=== PATIENT | female | born 1985 ===

== ENCOUNTER 2016-05-14 15:51 | Emergency (ER) | payer MEDICAID, OTHER ==
[~2016-05-14 15:51] MED LIST: HYDR-4003 PO; LEVO112T4 PO; METR500T19 PO
[2016-05-14 15:54] VITALS: BP 131/95; PULSE 83; RESP 16; O2SAT 100
--- NOTE | 2016-05-14 18:04 | ED.REPORT ---
HPI-Sore Throat ONLY HPI/PE done May 14, 2016 ED Provider: Garfield Jeong DO A 30 year old female with a history of asthma, hyperthyroidism, and prior history of smoking is brought to the ED via EMS complaining of a sore throat and throat tightness. This is accompanied by cough, chest pain, pleuritic pain, fever, and right-sided abdominal pain. She first noticed the fever and sore throat yesterday and began coughing this morning. The abdominal pain began while the pt has been in the ED. Nursing Notes Stated Complaint: THROAT TIGHTNESS Chief Complaint: General Complaint Nursing Notes Reviewed: Yes Allergies: Coded Allergies: TAPE (Verified Allergy, Mild, 08/01/15) carbamide peroxide (Verified Allergy, Mild, Pt has an allergy to an eardrop name unknown, 08/01/15) glycerin (Verified Allergy, Mild, Pt has an allergy to an eardrop name unknown, 08/01/15) Sulfa (Sulfonamide Antibiotics) (Verified Allergy, Unknown, 08/01/15) ibuprofen (Verified Allergy, Unknown, 08/01/15) Uncoded Allergies: DEPO PROVERA (Allergy, Unknown, itching, rash, 03/22/14) METHEMAZOLE-THYROID MED (Allergy, Unknown, 04/28/14) PTU-THYROID MED (Allergy, Unknown, 04/28/14) Scheduled Levothyroxine (Levothyroxine) 112 Mcg Tablet 175 MCG PO DAILY Metronidazole (Metronidazole) 500 Mg Tablet 500 MG PO TID Scheduled PRN Hydrocodone-Acetaminophen 5-325 mg (Hydrocodone-Acetaminophen 5-325 mg) 1 Each Tablet 1 TABLET PO Q4H PRN PRN For Pain General Time Seen by MD: 18:04 Chief Complaint Sore throat Hx Obtained From: Patient, EMS Arrived By: Ambulance Onset Occurred: 1 day ago Symptom Duration: Since onset Recent Healthcare: No recent hospitalization, Recent doctor visit Similar Sx Previous: No Past Medical History Past Medical History Notes: Endocrineologist: Dr. Jenkins OB: Eun Past Medical History Kidney infections Hyperthyroid without medication chlamydia GERD Reports: Asthma Reports: Obesity Past Surgical History Myringotomy Loli Fundoplication Hiatal hernia surgery Complete thyroidectomy Reports: Cholecystectomy Family History Noncontributory Smoking History Former Smoker Social History Alcohol Use: Denies alcohol use Drug Use: Denies drug use Other Social History: Ambulatory Status Independent Review of Systems Review of Systems Note: throat tightness Constitutional: Reports: Fever Ears / Nose / Throat: Reports: Sore throat Respiratory: Reports: Non-productive cough, Pleuritic pain GI: Reports: Abdominal pain Skin: Denies Rash Complete sys rev & neg: except as marked. Cardiovascular: Reports: Chest pain Musculoskeletal: Denies: Back pain, Neck pain Physical Exam Initial Vital Signs Vital Signs (First) Date Time Temp Pulse Resp B/P Pulse Ox O2 Delivery O2 Flow Rate FiO2 05/14/16 15:54 37.3 83 16 131/95 100 Room Air Initial VS: Reviewed General/Constitutional: Awake, Alert ENT: Atraumatic, Airway patent, Mucous membranes moist tonsillar hypertrophy and erythema bilaterally Neck: Atraumatic, Supple, Full range of motion Head / Eyes: Atraumatic, Normocephalic, PERRL, EOMI Respiratory / Chest: Atraumatic, Breath sounds NL, Breath sounds = bilat, No respiratory distress Cardiovascular: Heart rate NL, Regular rhythm, Heart sounds NL Abdomen: Atraumatic, Soft, Non-tender Skin: Atraumatic, Color NL, No rash, Warm, Dry Neurologic: Oriented X3, Speech NL, No motor deficits, No sensory deficits Back: Atraumatic, Full range of motion Upper Extremity / MS: Atraumatic, Full range of motion Lower Extremity / Pelvis / MS: Atraumatic, Full range of motion Psychiatric: Affect NL, Mood NL Interpretation & Diagnostics Lab Results Interpretation Result Diagram: 05/14/16204405/14/162044 Test 05/14/16 20:45 05/14/16 23:20 White Blood Count 8.2th/mm3 (3.8-10.1) Red Blood Count 4.81mil/mm3 (3.90-5.20) Hemoglobin 11.5g/dL (12.0-15.6) Hematocrit 35.9% (35.0-46.0) Mean Corpuscular Volume 74.6fL (81-100) Mean Corpuscular Hemoglobin 23.9pg (27.0-35.0) Mean Corpuscular Hemoglobin Concent 32.0% (32.0-37.0) Red Cell Distribution Width 16.1% (12.3-15.4) Platelet Count 404bil/L (150-400) Neutrophils (%) (Auto) 64.9% (40-74) Lymphocytes (%) (Auto) 29.1% (14-46) Monocytes (%) (Auto) 3.9% (4-12) Eosinophils (%) (Auto) 1.5% (0-5) Basophils (%) (Auto) 0.4% (0-3) D-Dimer < 0.5mg/L (<0.50) Sodium Level 137mEq/L (134-144) Potassium Level 3.8mEq/L (3.5-5.2) Chloride Level 100mEq/L (97-108) Carbon Dioxide Level 21mmol/L (18-29) Blood Urea Nitrogen 4mg/dL (6-20) Creatinine 0.62mg/dL (0.57-1.00) Estimat Glomerular Filtration Rate 163mL/min (>59) Glucose Level 83mg/dL (60-99) Calcium Level 7.9mg/dL (8.5-10.1) Total Bilirubin 0.6mg/dL (0.0-1.2) Aspartate Amino Transf (AST/SGOT) 25U/L (0-50) Alanine Aminotransferase (ALT/SGPT) 14U/L (0-32) Alkaline Phosphatase 96U/L (25-150) Total Protein 7.5g/dL (6.4-8.4) Albumin 4.1g/dL (3.4-5.0) Hold [place] Top Tube Received (Received) Troponin T 0.010ug/L (0.0-0.011) Pulse Oximetry Interpretation Pulse Oximetry Interpretation: 100% on room air Pulse Oximetry: Pulse Ox normal Pulse Oximetry Interpretation: 100% on room air Pulse Oximetry: Pulse Ox normal ECG Interpretation ECG Interpretation: normal sinus rhythm with a rate of 88 nonspecific T abnormalities, diffuse leads history of nonspecific T waves, present in 07/2015 Time: 20:52 Interpreted by: ED physician Re-Eval/Medical Decision Source of Hx: Old records Re-Evaluation/Progress : Time of Eval: 01:25 Patient Status: Condition improved Re-Evaluation/Progress Note: Pt rechecked, who is comfortable. Diagnosis and the plan for discharge are discussed. The pt understands and agrees with the plan. All questions are addressed at this time. Counseled Regarding: Diagnosis, Lab results, Need for follow-up, When/why to return to ED Discharge & Departure Primary Impression: Pharyngitis Pharyngitis/tonsillitis etiology: unspecified etiology Qualified Code: J02.9 - Acute pharyngitis, unspecified Disposition: Home Discharge Condition All VS Reviewed: Yes Condition: Stable Patient Instructions: Pharyngitis (ED) Additional Instructions: Amoxicillin twice daily for 10 days. Percocet 1 every 6 hours as needed for pain. Warm salt water gargles. I would like you to have your throat rechecked in 2-3 days. Call your clinic tomorrow for follow-up. Do not drive tonight. Do not drive or drink alcohol or consume acetaminophen while taking the Percocet. Do not hesitate to return if any problems or any worsening symptoms. Your EKG was similar to prior EKGs. Your heart enzymes are normal. Your blood clot test was negative. I think that the tightness in your throat is due to the throat infection that is apparent on physical examination. Referrals: Luda Hernandez PA-C (PCP) Alejandroibally Attestation Portions of this note were transcribed by Regan Malloy. I, Dr. Jeong personally performed the history, physical exam and medical decision-making; I reviewed and confirmed the accuracy of the information in the transcribed note. Signed by: Marcos Lala, 05/15/2016 and 0144. copies to: Luda Hernandez PA-C, Todd P DO May 14, 2016 18:04 REGAN MALLOY May 14, 2016 19:15
[2016-05-14] MEDS ORDERED: HYDROcodone-APAP 5-325 mg Tablet PO ONE (20:45)
[2016-05-14 21:03] LABS: BASOPHILS % (AUTO) 0.4 % (0-3); EOSINOPHILS % (AUTO) 1.5 % (0-5); MONOCYTES % (AUTO) 3.9 % (4-12); Mean Corpuscular Hemoglobin 23.9 pg (27.0-35.0); Mean Corpuscular Volume 74.6 fL (81-100); NEUTROPHILS % (AUTO) 64.9 % (40-74); Platelet Count 404 bil/L (150-400)
[2016-05-14 21:26] LABS: TROPONIN T 0.01 ug/L (0.0-0.011)
[2016-05-14 22:36] VITALS: BP 141/93; PULSE 90; RESP 20; O2SAT 100
[2016-05-14] MEDS ORDERED: Amoxicillin-Clav 875-125 mg Tablet PO ONE (22:45)
[2016-05-15] MEDS ORDERED: _oxyCODONE/APAP 5-325 mg Tablet PO PRN (00:20)
[2016-05-15 01:40] VITALS: BP 132/83; PULSE 68; RESP 20; O2SAT 99
== END 2016-05-15 01:40 | disposition home or self-care (01) ==
LOC: EDBD 15:51 → EDUNIT# 15:51 → SED 15:55
DX: J02.9 Acute pharyngitis, unspecified (principal); R07.81 Pleurodynia; R10.9 Unspecified abdominal pain; K21.9 Gastro-esophageal reflux disease without esophagitis; J45.909 Unspecified asthma, uncomplicated; Z87.891 Personal history of nicotine dependence; Z88.8 Allergy status to other drugs, medicaments and biological substances; Z88.2 Allergy status to sulfonamides; Z88.6 Allergy status to analgesic agent

== ENCOUNTER 2016-11-08 21:41 | Emergency (ER) | payer MEDICAID, OTHER ==
[~2016-11-08] VITALS: Ht 160 cm; Wt 88.6 kg
[2016-11-08 21:51] VITALS: BP 159/108; RESP 16; O2SAT 100
--- NOTE | 2016-11-08 23:32 | ED.REPORT ---
HPI-Ear Pain/Problem/FB Date of Service Nov 08, 2016 ED Provider: Popeye Lara MD Patient is a 31 year old female who presents to the ED complaining of right ear bleeding onset 3 hours ago. Associated symptoms include right ear pain, throat pain, nausea and an episode of clear/light pink colored emesis. She reports that she recently had tubes placed in her ears, as well as a T&A that happened two days ago. Nursing Notes Stated Complaint: POST SURGERY BLEEDING Chief Complaint: ENT & Mouth Nursing Notes Reviewed: Yes Allergies: Coded Allergies: TAPE (Verified Allergy, Mild, 11/08/16) carbamide peroxide (Verified Allergy, Mild, Pt has an allergy to an eardrop name unknown, 11/08/16) glycerin (Verified Allergy, Mild, Pt has an allergy to an eardrop name unknown, 11/08/16) Sulfa (Sulfonamide Antibiotics) (Verified Allergy, Unknown, 11/08/16) ibuprofen (Verified Allergy, Unknown, 11/08/16) Uncoded Allergies: DEPO PROVERA (Allergy, Unknown, itching, rash, 03/22/14) METHEMAZOLE-THYROID MED (Allergy, Unknown, 04/28/14) PTU-THYROID MED (Allergy, Unknown, 04/28/14) Scheduled Levothyroxine (Levothyroxine) 112 Mcg Tablet 175 MCG PO DAILY Metronidazole (Metronidazole) 500 Mg Tablet 500 MG PO TID Ondansetron ODT (Ondansetron ODT) 4 Mg Tab.rapdis 4 MG PO QID Scheduled PRN Hydrocodone-Acetaminophen 5-325 mg (Hydrocodone-Acetaminophen 5-325 mg) 1 Each Tablet 1 TABLET PO Q4H PRN PRN For Pain General Time Seen by MD: 23:31 Chief Complaint Ear problem right Hx Obtained From: Patient Arrived By: Walk-in Onset Occurred: 1 - 4 hours ago Symptom Duration: Since onset Location: : Inner ear Quality: Painful Severity: Current: Moderate Recent Healthcare: Recent doctor visit Similar Sx Previous: No Past Medical History Past Medical History Notes: Endocrineologist: Dr. Jenkins OB: Eun Past Medical History Kidney infections Hyperthyroid without medication chlamydia GERD Reports: Asthma Reports: Obesity Past Surgical History Myringotomy Loli Fundoplication Hiatal hernia surgery Complete thyroidectomy T&A Reports: Cholecystectomy Family History Noncontributory Smoking History Former Smoker Social History Alcohol Use: Denies alcohol use Drug Use: Denies drug use Other Social History: Good social support, Ambulatory Status Independent Review of Systems Ears / Nose / Throat: Reports: Ear drainage right (bloody), Earache right, Throat pain Complete sys rev & neg: except as marked. Additional Review of Systems GI: Reports: Nausea, Vomiting Physical Exam Initial Vital Signs Vital Signs (First) Date Time Temp Pulse Resp B/P Pulse Ox O2 Delivery O2 Flow Rate FiO2 11/08/16 21:51 37.0 72 16 159/108 100 Room Air Initial VS: Reviewed General/Constitutional: Awake, Alert ENT: Airway patent, Mucous membranes moist blood present in right ear, no active bleeding post-operative throat, no bleeding Head / Eyes: Atraumatic, Normocephalic Respiratory / Chest: Atraumatic, No respiratory distress Skin: Atraumatic, Warm, Dry Upper Extremity / MS: Atraumatic, Full range of motion Re-Eval/Medical Decision Re-Evaluation/Progress : Time of Eval: 23:44 Re-Evaluation/Progress Note: Discussed plan for discharge and plan to follow up with ENT on Thursday. Patient understands and agrees to plan. All questions were addressed. Counseled Regarding: Diagnosis, Need for follow-up, When/why to return to ED Discharge & Departure Primary Impression: Postoperative hemorrhage of ear Procedure type: ear Qualified Code: H95.41 - Postprocedural hemorrhage of ear and mastoid process following a procedure on the ear and mastoid process Disposition: Home Discharge Condition All VS Reviewed: Yes Condition: Stable Additional Instructions: It is not surprising or alarming that there was a small amount of bleeding from the ear. Continue with previous care, use ondansetron as needed for nausea. If having continued problems with bleeding, call the bus person physician for Dr Boris Solo. You can reach them at the regular office number. Call Thursday am to adivse of bleeding and follow up with them next week. Blood pressure is elevated today, re-check this with your primary care provider soon. Referrals: Luda Hernandez PA-C (PCP) Scribe Attestation Portions of this note were transcribed by Natalya Bean. I, Dr. Lara personally performed the history, physical exam and medical decision-making; I reviewed and confirmed the accuracy of the information in the transcribed note. Signed by: Marcos Barajas, 11/08/16 copies to: Luda Hernandez PA-C, Donald L MD Nov 08, 2016 23:32 Karin Bean Nov 08, 2016 23:43
[2016-11-08] MEDS ORDERED: Ondansetron 8 mg ODT Tablet PO ONE (23:50)
[2016-11-08] MEDS ORDERED: HYDROcodone-APAP 7.5-325 mg/15 mL 15 mL Solution PO ONE (23:50)
[2016-11-08] MEDS ORDERED: ONDA4TAB12 PO (23:54)
[2016-11-09 00:02] VITALS: BP 124/80; PULSE 64; RESP 16; O2SAT 97
== END 2016-11-09 00:20 | disposition home or self-care (01) ==
LOC: SED 21:41
DX: H95.41 Postprocedural hemorrhage of ear and mastoid process following a procedure on the ear and mastoid process (principal); J45.909 Unspecified asthma, uncomplicated; K21.9 Gastro-esophageal reflux disease without esophagitis; Z87.891 Personal history of nicotine dependence; Z87.448 Personal history of other diseases of urinary system; Z88.2 Allergy status to sulfonamides; Z88.6 Allergy status to analgesic agent; Z88.8 Allergy status to other drugs, medicaments and biological substances